=== PATIENT | male | born 1955 | race Caucasian/White ===

== ENCOUNTER 2019-01-28 05:52 | Inpatient (IN) ==
[2019-01-21 12:05] LABS: Basophils % 0.5 % (0.0-0.8); Eosinophils # 0.5 10*3/uL (0.0-0.87); Hemoglobin 15.4 GM/DL (14.0-18.0); Immature Granulocytes % 0.4 %; Immature Granulocytes Absolute 0.03 #; Lymphocytes % 23.1 % (21.2-54.2); Mean Corpuscular HGB Conc 33.5 GM/DL (32-36); Mean Corpuscular Volume 101.1 FL (87-102); Mean Platelet Volume 9.8 FL (9.6-12.0); Monocytes % 8.4 % (1.7-12.7); Neutrophils % 61.6 % (38.7-73.9); Platelet Count 163 T/CUMM (130-400); Red Blood Count 4.55 MC/CUMM (3.8-5.5); Red Cell Distribution Width 12.3 % (9.3-17.3); White Blood Count 8.5 T/CUMM (4-12)
[2019-01-21 12:12] LABS: PT Patient Result 11.2 SECS
[2019-01-21 12:27] LABS: Albumin 3.7 G/DL (3.4-5.0); Bilirubin,Total 0.7 MG/DL (0.2-1.0); Calcium 9.2 MG/DL (8.5-10.1); Total Protein 7.3 G/DL (6.4-8.3)
[~2019-01-28 05:52] MED LIST: FAMOTIDINE 20 MG TABLET PO ONE
[2019-01-28] MEDS ORDERED: ceFAZolin 1,000 MG in SYRINGE 1 EACH IV ONE (06:30)
[2019-01-28] MEDS ORDERED: ALBUTEROL/IPRATROPIUM 3 ML NEB RESP TX ONE (06:31)
[2019-01-28] MEDS ORDERED: FAMOTIDINE 20 MG TABLET ONE (06:36)
[2019-01-28] MEDS ORDERED: ceFAZolin 1,000 MG VIAL ONE (06:36)
[2019-01-28] MEDS ORDERED: HEPARIN 5,000 UNIT/1 ML VIAL ONE (06:54)
[2019-01-28] MEDS ORDERED: VANCOMYCIN 1,000 MG VIAL ONE (06:55)
[2019-01-28] MEDS ORDERED: LIDOCAINE 1% 20 ML VIAL ONE (06:55)
[2019-01-28] MEDS: LACTATED RINGERS 1,000 ML IV SCH ×4 (07:00→22:46)
[2019-01-28] MEDS ORDERED: HEPARIN/NACL 0.9% 2 UNITS/ML 2,000 ML IV ONE (07:14)
[2019-01-28] MEDS ORDERED: HEPARIN/NACL 0.9% 2 UNITS/ML 1,000 ML IV ONE (07:15)
[2019-01-28] MEDS ORDERED: LACTATED RINGERS 1,000 ML IV SCH (08:30)
[2019-01-28] MEDS ORDERED: ONDANSETRON 4 MG/2 ML VIAL IV PRN ×2 (10:01→10:44)
[2019-01-28] MEDS ORDERED: OXYCODONE 20 MG PO PRN (10:05)
[2019-01-28] MEDS ORDERED: CYCLOBENZAPRINE 10 MG TABLET PO PRN (10:05)
[2019-01-28] MEDS ORDERED: PROPOFOL 200 MG/20 ML VIAL IV ONE (10:38)
[2019-01-28] MEDS ORDERED: HEPARIN 10,000 UNIT/10 ML VIAL ONE (10:39)
[2019-01-28] MEDS ORDERED: SEVOFLURANE 1 UNIT/15 MINUTE INH ONE (10:39)
[2019-01-28] MEDS ORDERED: ETOMIDATE 40 MG/20 ML VIAL IV ONE (10:39)
[2019-01-28] MEDS ORDERED: GLYCOPYRROLATE 0.4 MG/2 ML VIAL ONE (10:39)
[2019-01-28] MEDS ORDERED: PHENYLEPHRINE DRIP 20 MG/250 ML PREMIX IV ONE (10:39)
[2019-01-28] MEDS ORDERED: ONDANSETRON 4 MG/2 ML VIAL ONE (10:39)
[2019-01-28] MEDS ORDERED: MIDAZOLAM 2 MG/2 ML VIAL ONE (10:40)
[2019-01-28] MEDS ORDERED: PROTAMINE SULFATE 50 MG/5 ML VIAL IV ONE (10:40)
[2019-01-28] MEDS ORDERED: ROCURONIUM 100 MG/10 ML VIAL IV ONE (10:40)
[2019-01-28] MEDS ORDERED: NITROGLYCERIN DRIP 50 MG/250 ML BOTTLE IV ONE (10:40)
[2019-01-28] MEDS ORDERED: NEOSTIGMINE 10 MG/10 ML VIAL ONE (10:40)
[2019-01-28] MEDS: HYDROmorphone 2 MG/1 ML VIAL IV PRN ×6 (10:40→16:22)
[2019-01-28] MEDS ORDERED: LACTATED RINGERS 2,000 ML IV ONE (10:40)
[2019-01-28] MEDS ORDERED: fentaNYL 100 MCG/2 ML VIAL ONE (10:41)
[2019-01-28] MEDS ORDERED: MEPERIDINE 25 MG/1 ML VIAL IV PRN (10:44)
[2019-01-28] MEDS ORDERED: MEPERIDINE 25 MG/1 ML VIAL ONE (12:17)
[2019-01-28] MEDS ORDERED: COLCHICINE 0.6 MG CAPSULE PO PRN (13:30)
[2019-01-28] MEDS ORDERED: ALBUTEROL 2.5 MG/3 ML NEB RESP TX PRN (13:30)
[2019-01-28] MEDS ORDERED: SIMVASTATIN 20 MG TABLET PO SCH (21:00)
[2019-01-29 06:01] LABS: Hematocrit 41.5 VOL% (42.0-52.0); Hemoglobin 13.6 GM/DL (14.0-18.0)
[2019-01-29 06:30] LABS: Calcium 8.6 MG/DL (8.5-10.1); Osmolality,Calculated 276.5 MOS/KG (273-304)
[2019-01-29 08:07] VITALS: BP 118/78
[2019-01-29] MEDS ORDERED: METOPROLOL SUCCINATE XL 50 MG TABLET PO SCH (09:00)
[2019-01-29] MEDS ORDERED: POTASSIUM CHLORIDE 20 MEQ TABLET PO SCH (09:00)
[2019-01-29] MEDS ORDERED: ALLOPURINOL 300 MG TABLET PO SCH (09:00)
[2019-01-29] MEDS ORDERED: ASPIRIN 325 MG TABLET PO SCH (09:00)
[2019-01-29] MEDS ORDERED: FUROSEMIDE 40 MG TABLET PO SCH (09:00)
[2019-01-29] MEDS ORDERED: STIOLTO INH SCH (09:00)
[2019-01-29] MEDS ORDERED: ESCITALOPRAM 10 MG TABLET PO SCH (09:00)
[2019-01-30] MEDS ORDERED: GLUCOSAMINE 500 MG TABLET PO SCH (09:00)
[2019-01-30] MEDS ORDERED: OMEGA 3 ACID ETHYL ESTERS 1 GM CAPSULE PO SCH (09:00)
== END 2019-01-29 11:39 | disposition home or self-care (01) | DRG 269 ==
LOC: N.SDSINP 05:52 → N.2E 13:00
PROVIDERS: ADMIT Surgery; ATTEND Surgery
PROC: IRERAAA (2019-01-28 08:15)